=== PATIENT | male | born 1985 | race Caucasian/White ===

== ENCOUNTER 2017-02-21 09:24 | Emergency (ER) | payer BC, MEDICAID ==
[2017-02-21] MEDS ORDERED: Lidocaine 1% MPF* 2 ML VIAL INJ ONE (11:50)
[2017-02-21] MEDS ORDERED: Lidocaine 2% PF * 5 ML VIAL ONE (11:54)
[2017-02-21 12:22] VITALS: BP 129/87
--- NOTE | 2017-02-21 13:00 | UC ---
Lower Extremity/Ankle HPI - HPI Summary HPI Summary: TRIP AND FALL YESTERDAY, TWISTED LEFT FOOT. PAIN IN 5TH AND 4TH TOES AND TOP OF FOOT. - History of Current Complaint Chief Complaint: UCLowerExtremity Stated Complaint: LEFT FOOT INJURY FROM FALL Time Seen by Provider: 02/21/17 10:14 Hx Obtained From: Patient Onset/Duration: Sudden Onset, Lasting Hours Severity Initially: Mild Severity Currently: Mild Pain Intensity: 2 Pain Scale Used: 0-10 Numeric Aggravating Factor(s): Standing, Ambulation Alleviating Factor(s): Rest - Risk Factors Gout Risk Factors: Negative DVT Risk Factors: Negative Septic Arthritis Risk Factor: Negative - Allergies/Home Medications Allergies/Adverse Reactions: Allergies Allergy/AdvReac Type Severity Reaction Status Date / Time Codeine Allergy Itching Verified 02/21/17 10:32 Home Medications: Home Medications NK [No Home Medications Reported] 02/21/17 [History Confirmed 02/21/17] PMH/Surg Hx/FS Hx/Imm Hx Previously Healthy: Yes - Surgical History Surgical History: None - Family History Known Family History: Negative: Other - NO JOINT LAXITY - Social History Occupation: Employed Full-time Lives: With Family Alcohol Use: Rare Substance Use Type: None Smoking Status (MU): Never Smoked Tobacco Review of Systems Constitutional: Negative Skin: Bruising - LEFT 5TH PROXIMAL TOE Eyes: Negative ENT: Negative Respiratory: Negative Cardiovascular: Negative Gastrointestinal: Negative Genitourinary: Negative Motor: Negative Neurovascular: Negative Musculoskeletal: Arthralgia - LEFT 4TH AND 5TH PROXIMAL TOE PAIN, Myalgia Neurological: Negative Psychological: Negative Is Patient Immunocompromised?: No All Other Systems Reviewed And Are Negative: Yes Physical Exam Triage Information Reviewed: Yes Appearance: Well-Appearing, No Pain Distress, Well-Nourished Vital Signs: Initial Vital Signs Temp 98.6 F 02/21/17 10:27 Pulse 88 02/21/17 10:27 Resp 18 02/21/17 10:27 BP 138/84 02/21/17 10:27 Pulse Ox 97 02/21/17 10:27 Vital Signs Reviewed: Yes Eye Exam: Normal ENT Exam: Normal Dental Exam: Normal Neck exam: Normal Respiratory Exam: Normal Respiratory: Positive: Chest non-tender, Lungs clear, Normal breath sounds, No respiratory distress, No accessory muscle use Cardiovascular Exam: Normal Cardiovascular: Positive: RRR, No Murmur, Pulses Normal, Brisk Capillary Refill Abdominal Exam: Normal Musculoskeletal: Positive: Strength Intact, ROM Limited @ - LEFT 5TH TOE, Edema @ - LEFT 5TH DISTAL FOOT Neurological Exam: Normal Psychological Exam: Normal Skin Exam: Normal Procedures - Procedure Summary Procedure Summary: REDUCTION OF ANGULATION OF LEFT FIFTH PROXIMAL PHALANX USING 2% LIDO (PLAIN) FOR DIGITAL BLOCK. Lower Extremity Course/Dx - Differential Dx/Diagnosis Differential Diagnosis/HQI/PQRI: Fracture (Closed), Sprain, Strain Provider Diagnoses: CLOSED FRACTURE OF LEFT FIFTH PROXIMAL PHALANX Discharge - Discharge Plan Condition: Stable Disposition: HOME Patient Education Materials: Toe Fracture (ED) Referrals: Philip Martinez MD [Medical Doctor] - Yaw Mahoney MD [Primary Care Provider] -
--- NOTE | 2017-02-21 19:50 | RAD ---
INDICATION: Left fourth and fifth toe injury COMPARISON: None TECHNIQUE: AP, lateral, and oblique views were obtained. FINDINGS: There is a transverse, mildly angulated fracture of the proximal aspect of the proximal phalanx of the fifth toe there are no other fractures. There is soft tissue swelling about the fracture site.. IMPRESSION: ANGULATED TRANSVERSE FRACTURE PROXIMAL PHALANX OF FIFTH TOE.
--- NOTE | 2017-02-21 19:51 | RAD ---
INDICATION: The fifth toe post reduction COMPARISON: Left foot same date TECHNIQUE: AP, lateral, and oblique views were obtained. FINDINGS: The angular deformity of the fracture proximal phalanx of the fifth toe is significantly improved. There is minor distraction and minor displacement. No other fractures are evident. There is soft tissue swelling. IMPRESSION: ] CLOSED REDUCTION OF FIFTH TOE FRACTURE WITH IMPROVED POSITION AND ALIGNMENT.
== END 2017-02-21 12:42 | disposition home or self-care (01) ==
LOC: UCCORT 09:24
DX: S92.512A Displaced fracture of proximal phalanx of left lesser toe(s), initial encounter for closed fracture (principal); W01.0XXA Fall on same level from slipping, tripping and stumbling without subsequent striking against object, initial encounter; Y93.9 Activity, unspecified; Y92.9 Unspecified place or not applicable; Z88.5 Allergy status to narcotic agent
CPT/HCPCS: 28515; 99213; G0463

== ENCOUNTER 2021-03-30 12:54 | Inpatient (IN) ==
[2021-03-30 14:51] LABS: ABS Lymphocytes 1.2 10^3/ul (1.0-4.8); ABS Monocytes 0.5 10^3/ul (0-0.8); ABS Neutrophils 3.5 10^3/ul (1.5-7.7); Hematocrit 47 % (42-52); Hemoglobin 16.4 g/dL (14.0-18.0); Lymphocyte % 23.1 %; Mean Corpuscular HGB Conc 35 g/dL (31-36); Mean Corpuscular Hemoglobin 30 pg (27-31); Mean Corpuscular Volume 85 fL (80-94); Mean Platelet Volume 7.4 fL (7.4-10.4); Nucleated Red Blood Cells % 0.2; Platelet Count 126 10^3/uL (150-450); Red Blood Count 5.56 10^6 /uL (4.18-5.48); Red Cell Distribution Width 13 % (10-15); White Blood Count 5.3 10^3/uL (3.5-10.8)
[2021-03-30 15:01] LABS: Activated Partial Thrombo Time 32.9 seconds (26.0-38.0); INR 1.29 (0.86-1.15)
[2021-03-30 15:04] LABS: Albumin 3.6 g/dL (3.2-5.2); Calcium 8.5 mg/dL (8.6-10.3); Total Bilirubin 0.8 mg/dL (0.2-1.0)
[2021-03-30 15:10] LABS: Albumin/Globulin Ratio 1.1 (1-3); C Reactive Protein 67.46 mg/L (<8.01); Globulin 3.4 g/dL (2-4); eGFR CKD-EPI 116.5 (>60)
[2021-03-30 15:34] LABS: Ferritin 948.3 ng/mL (24-336)
[2021-03-30] MEDS ORDERED: Iodixanol (CONTRAST) 320 MG/ML 100 ML SDV IV ONE (15:55)
[2021-03-30] MEDS ORDERED: Dexamethasone IV 4 MG/ML VIAL 1 ml VIAL IV SLOW PU ONE (16:41)
[2021-03-30] MEDS ORDERED: Ondansetron 4 mg VIAL 2 MG/ML 2 ml VIAL IV PRN (17:48)
[2021-03-30] MEDS ORDERED: Dextrose 50% Syringe 50 ml 25 GM/50 ML SYRINGE IV PUSH PRN ×2 (17:50→22:57)
[2021-03-30] MEDS ORDERED: Remdesivir 100 mg Vial 200 MG in NS 0.9% 250 ml 210 ML IV ONE (18:30)
[2021-03-30] MEDS: Azithromycin 500 mg/250 ml NS 500 MG/250 ML BAG IVPB SCH (18:37)
[2021-03-30] MEDS: cefTRIAXone 1 gm/50 mL NS BAG 1 GM/50 ML BAG IVPB SCH (18:37)
[2021-03-30 20:30] LABS: INR 1.21 (0.86-1.15)
[2021-03-30 20:46] LABS: Albumin 3.6 g/dL (3.2-5.2); Albumin/Globulin Ratio 1.1 (1-3); Calcium 8.3 mg/dL (8.6-10.3); Globulin 3.4 g/dL (2-4); Total Bilirubin 0.7 mg/dL (0.2-1.0); eGFR CKD-EPI 116.5 (>60)
[2021-03-30 20:50] LABS: Potassium 4.7 mmol/L (3.5-5.0)
[2021-03-30] MEDS: Enoxaparin 40 MG/0.4 ML SYR SUBCUT SCH (22:15)
[2021-03-31 05:09] LABS: PCO2 Arterial 36 mmHg (35-45); PO2 Arterial 75 mmHg (80-100)
[2021-03-31 06:31] LABS: ABS Lymphocytes 0.9 10^3/ul (1.0-4.8); ABS Monocytes 0.3 10^3/ul (0-0.8); ABS Neutrophils 1.2 10^3/ul (1.5-7.7); Hematocrit 44 % (42-52); Hemoglobin 15.2 g/dL (14.0-18.0); Lymphocyte % 39.5 %; Mean Corpuscular HGB Conc 35 g/dL (31-36); Mean Corpuscular Hemoglobin 30 pg (27-31); Mean Corpuscular Volume 86 fL (80-94); Mean Platelet Volume 7.8 fL (7.4-10.4); Nucleated Red Blood Cells % 0.2; Platelet Count 143 10^3/uL (150-450); Red Cell Distribution Width 13 % (10-15); White Blood Count 2.4 10^3/uL (3.5-10.8)
[2021-03-31 06:39] LABS: INR 1.18 (0.86-1.15)
[2021-03-31 06:53] LABS: Albumin 3.5 g/dL (3.2-5.2); Albumin/Globulin Ratio 1.1 (1-3); C Reactive Protein 74.96 mg/L (<8.01); Calcium 8.5 mg/dL (8.6-10.3); Globulin 3.2 g/dL (2-4); Potassium 4.3 mmol/L (3.5-5.0); Total Bilirubin 0.6 mg/dL (0.2-1.0); Total Protein 6.7 g/dL (6.4-8.9); eGFR CKD-EPI 113.2 (>60)
[2021-03-31] MEDS: methylPREDNISolone SOD 40 mg/ml 1 ml VIAL IV SCH ×2 (10:52→17:26)
[2021-03-31] MEDS: Azithromycin 500 mg/250 ml NS 500 MG/250 ML BAG IVPB SCH (11:21)
[2021-03-31] MEDS: cefTRIAXone 1 gm/50 mL NS BAG 1 GM/50 ML BAG IVPB SCH (17:26)
[2021-03-31] MEDS ORDERED: Furosemide 40 mg/4 ml IV VIAL IV SLOW PU ONE (18:38)
[2021-03-31] MEDS: Enoxaparin 40 MG/0.4 ML SYR SUBCUT SCH (20:36)
[2021-03-31] MEDS: Remdesivir 100 mg Vial 100 MG in NS 0.9% 250 ml 230 ML IV SCH (20:46)
[2021-03-31] MEDS ORDERED: Insulin GLARGINE 100 un/ml 10 ml VIAL ONE (21:21)
[2021-03-31] MEDS ORDERED: Insulin GLARGINE 100 un/ml 10 ml VIAL SUBCUT SCH (21:30)
[2021-04-01] MEDS: methylPREDNISolone SOD 40 mg/ml 1 ml VIAL IV SCH ×3 (03:01→17:34)
[2021-04-01 05:30] LABS: ABS Lymphocytes 1.1 10^3/ul (1.0-4.8); ABS Monocytes 0.5 10^3/ul (0-0.8); ABS Neutrophils 3.3 10^3/ul (1.5-7.7); Hematocrit 44 % (42-52); Hemoglobin 15.1 g/dL (14.0-18.0); Mean Corpuscular HGB Conc 35 g/dL (31-36); Mean Corpuscular Hemoglobin 30 pg (27-31); Mean Corpuscular Volume 86 fL (80-94); Mean Platelet Volume 7.9 fL (7.4-10.4); Platelet Count 170 10^3/uL (150-450); Red Blood Count 5.06 10^6 /uL (4.18-5.48); Red Cell Distribution Width 13 % (10-15); White Blood Count 4.8 10^3/uL (3.5-10.8)
[2021-04-01 05:45] LABS: INR 1.18 (0.86-1.15)
[2021-04-01 06:03] LABS: Albumin 3.6 g/dL (3.2-5.2); Albumin/Globulin Ratio 1.1 (1-3); Calcium 8.8 mg/dL (8.6-10.3); Globulin 3.2 g/dL (2-4); Potassium 4.5 mmol/L (3.5-5.0); Total Bilirubin 0.5 mg/dL (0.2-1.0); Total Protein 6.8 g/dL (6.4-8.9); eGFR CKD-EPI 91.7 (>60)
[2021-04-01 13:04] LABS: Glucose Confirmatory 408 mg/dL (70-100)
[2021-04-01] MEDS ORDERED: Insulin GLARGINE 100 un/ml 10 ml VIAL SUBCUT ONE (13:08)
[2021-04-01] MEDS: cefTRIAXone 1 gm/50 mL NS BAG 1 GM/50 ML BAG IVPB SCH (17:33)
[2021-04-01] MEDS ORDERED: Insulin GLARGINE 100 un/ml 10 ml VIAL SUBCUT SCH ×2 (21:00)
[2021-04-01] MEDS: Enoxaparin 40 MG/0.4 ML SYR SUBCUT SCH (21:09)
[2021-04-01 21:54] LABS: Glucose Confirmatory 411 mg/dL (70-100)
[2021-04-01] MEDS: Remdesivir 100 mg Vial 100 MG in NS 0.9% 250 ml 230 ML IV SCH (22:19)
[2021-04-02] MEDS: methylPREDNISolone SOD 40 mg/ml 1 ml VIAL IV SCH ×3 (02:13→17:19)
[2021-04-02 04:51] LABS: INR 1.19 (0.86-1.15)
[2021-04-02 05:01] LABS: Albumin 3.4 g/dL (3.2-5.2); Albumin/Globulin Ratio 1.1 (1-3); Calcium 8.6 mg/dL (8.6-10.3); Potassium 4.6 mmol/L (3.5-5.0); Total Bilirubin 0.5 mg/dL (0.2-1.0); Total Protein 6.4 g/dL (6.4-8.9); eGFR CKD-EPI 115.6 (>60)
[2021-04-02 06:58] LABS: ABS Lymphocytes 0.7 10^3/ul (1.0-4.8); ABS Monocytes 0.5 10^3/ul (0-0.8); ABS Neutrophils 4.8 10^3/ul (1.5-7.7); Hematocrit 42 % (42-52); Hemoglobin 14.5 g/dL (14.0-18.0); Lymphocyte % 11.6 %; Mean Corpuscular HGB Conc 35 g/dL (31-36); Mean Corpuscular Hemoglobin 30 pg (27-31); Mean Corpuscular Volume 86 fL (80-94); Mean Platelet Volume 7.9 fL (7.4-10.4); Platelet Count 192 10^3/uL (150-450); Red Cell Distribution Width 13 % (10-15); White Blood Count 6.1 10^3/uL (3.5-10.8)
[2021-04-02 14:58] LABS: Glucose Confirmatory 457 mg/dL (70-100)
[2021-04-02] MEDS: cefTRIAXone 1 gm/50 mL NS BAG 1 GM/50 ML BAG IVPB SCH (17:19)
[2021-04-02 18:34] LABS: Glucose Confirmatory 423 mg/dL (70-100)
[2021-04-02] MEDS: Remdesivir 100 mg Vial 100 MG in NS 0.9% 250 ml 230 ML IV SCH (20:45)
[2021-04-02] MEDS: Enoxaparin 40 MG/0.4 ML SYR SUBCUT SCH (20:46)
[2021-04-02] MEDS ORDERED: Insulin GLARGINE 100 un/ml 10 ml VIAL SUBCUT SCH (21:00)
[2021-04-02 21:39] LABS: Glucose Confirmatory 433 mg/dL (70-100)
[2021-04-02] MEDS ORDERED: Insulin Infusion 100unit/100mL 100 UNIT/100 ML BAG IV ONE (21:55)
[2021-04-02] MEDS ORDERED: Dextrose 50% Syringe 50 ml 25 GM/50 ML SYRINGE IV PUSH PRN ×2 (22:26→22:29)
[2021-04-03] MEDS ORDERED: methylPREDNISolone 125 mg 2 ML VIAL ONE (01:22)
[2021-04-03] MEDS: methylPREDNISolone 125 mg 2 ML VIAL IV SCH ×2 (01:34→08:18)
[2021-04-03 07:02] LABS: ABS Lymphocytes 0.5 10^3/ul (1.0-4.8); ABS Monocytes 0.4 10^3/ul (0-0.8); ABS Neutrophils 4.7 10^3/ul (1.5-7.7); Hematocrit 41 % (42-52); Hemoglobin 14.3 g/dL (14.0-18.0); Lymphocyte % 9.3 %; Mean Corpuscular HGB Conc 35 g/dL (31-36); Mean Corpuscular Hemoglobin 30 pg (27-31); Mean Corpuscular Volume 86 fL (80-94); Mean Platelet Volume 8.1 fL (7.4-10.4); Platelet Count 204 10^3/uL (150-450); Red Blood Count 4.81 10^6 /uL (4.18-5.48); Red Cell Distribution Width 13 % (10-15); White Blood Count 5.7 10^3/uL (3.5-10.8)
[2021-04-03 08:18] LABS: Albumin 3.4 g/dL (3.2-5.2); Albumin/Globulin Ratio 1.2 (1-3); Calcium 8.5 mg/dL (8.6-10.3); Globulin 2.8 g/dL (2-4); Potassium 4.4 mmol/L (3.5-5.0); Total Bilirubin 0.7 mg/dL (0.2-1.0); Total Protein 6.2 g/dL (6.4-8.9); eGFR CKD-EPI 118.7 (>60)
[2021-04-03 12:46] LABS: Glucose Confirmatory 404 mg/dL (70-100)
[2021-04-03] MEDS: cefTRIAXone 1 gm/50 mL NS BAG 1 GM/50 ML BAG IVPB SCH (17:37)
[2021-04-03] MEDS: Enoxaparin 40 MG/0.4 ML SYR SUBCUT SCH (20:32)
[2021-04-03] MEDS ORDERED: methylPREDNISolone 125 mg 2 ML VIAL IV SCH (21:00)
[2021-04-03] MEDS ORDERED: Insulin GLARGINE 100 un/ml 10 ml VIAL SUBCUT SCH ×2 (21:00)
[2021-04-03] MEDS: Remdesivir 100 mg Vial 100 MG in NS 0.9% 250 ml 230 ML IV SCH (22:37)
[2021-04-04 06:26] LABS: ABS Lymphocytes 1.3 10^3/ul (1.0-4.8); ABS Monocytes 0.8 10^3/ul (0-0.8); ABS Neutrophils 5.3 10^3/ul (1.5-7.7); Eosinophil % 0.1 %; Hematocrit 42 % (42-52); Hemoglobin 14.5 g/dL (14.0-18.0); Lymphocyte % 17.9 %; Mean Corpuscular HGB Conc 35 g/dL (31-36); Mean Corpuscular Hemoglobin 30 pg (27-31); Mean Corpuscular Volume 86 fL (80-94); Platelet Count 218 10^3/uL (150-450); Red Blood Count 4.87 10^6 /uL (4.18-5.48); Red Cell Distribution Width 13 % (10-15); White Blood Count 7.4 10^3/uL (3.5-10.8)
[2021-04-04 06:30] LABS: INR 1.18 (0.86-1.15)
[2021-04-04 06:45] LABS: Albumin 3.3 g/dL (3.2-5.2); Albumin/Globulin Ratio 1.2 (1-3); Calcium 8.4 mg/dL (8.6-10.3); Globulin 2.7 g/dL (2-4); Potassium 4.1 mmol/L (3.5-5.0); Total Bilirubin 0.7 mg/dL (0.2-1.0); eGFR CKD-EPI 114.8 (>60)
[2021-04-04] MEDS: methylPREDNISolone 125 mg 2 ML VIAL IV SCH (08:47)
[2021-04-04] MEDS ORDERED: Senna TAB 8.6 mg TAB PO PRN (14:15)
[2021-04-04] MEDS: cefTRIAXone 1 gm/50 mL NS BAG 1 GM/50 ML BAG IVPB SCH (17:42)
[2021-04-04] MEDS ORDERED: Dextrose 50% Syringe 50 ml 25 GM/50 ML SYRINGE IV PUSH PRN (18:07)
[2021-04-04] MEDS: Insulin GLARGINE 100 un/ml 10 ml VIAL SUBCUT SCH (20:54)
[2021-04-04] MEDS: Enoxaparin 40 MG/0.4 ML SYR SUBCUT SCH (20:54)
[2021-04-05 06:08] LABS: ABS Lymphocytes 1.4 10^3/ul (1.0-4.8); ABS Monocytes 0.8 10^3/ul (0-0.8); ABS Neutrophils 5.1 10^3/ul (1.5-7.7); Eosinophil % 0.5 %; Hematocrit 43 % (42-52); Hemoglobin 15.1 g/dL (14.0-18.0); Lymphocyte % 18.5 %; Mean Corpuscular HGB Conc 35 g/dL (31-36); Mean Corpuscular Hemoglobin 30 pg (27-31); Mean Corpuscular Volume 86 fL (80-94); Mean Platelet Volume 7.8 fL (7.4-10.4); Platelet Count 243 10^3/uL (150-450); Red Blood Count 5.02 10^6 /uL (4.18-5.48); Red Cell Distribution Width 13 % (10-15); White Blood Count 7.3 10^3/uL (3.5-10.8)
[2021-04-05 06:20] LABS: Calcium 8.5 mg/dL (8.6-10.3); Magnesium 2.2 mg/dL (1.9-2.7); Potassium 4.2 mmol/L (3.5-5.0); eGFR CKD-EPI 117.8 (>60)
[2021-04-05 08:42] LABS: Albumin 3.4 g/dL (3.2-5.2); Albumin/Globulin Ratio 1.3 (1-3); Globulin 2.7 g/dL (2-4); Total Bilirubin 0.9 mg/dL (0.2-1.0); Total Protein 6.1 g/dL (6.4-8.9)
[2021-04-05] MEDS: methylPREDNISolone 125 mg 2 ML VIAL IV SCH (09:09)
[2021-04-05] MEDS: cefTRIAXone 1 gm/50 mL NS BAG 1 GM/50 ML BAG IVPB SCH (17:34)
[2021-04-05] MEDS: Insulin GLARGINE 100 un/ml 10 ml VIAL SUBCUT SCH (20:09)
[2021-04-05] MEDS: Enoxaparin 40 MG/0.4 ML SYR SUBCUT SCH (20:12)
[2021-04-06 06:27] LABS: ABS Eosinophils 0.1 10^3/ul (0-0.6); ABS Lymphocytes 1.8 10^3/ul (1.0-4.8); ABS Neutrophils 5.6 10^3/ul (1.5-7.7); Eosinophil % 1.2 %; Hematocrit 45 % (42-52); Hemoglobin 15.2 g/dL (14.0-18.0); Lymphocyte % 20.9 %; Mean Corpuscular HGB Conc 34 g/dL (31-36); Mean Corpuscular Hemoglobin 30 pg (27-31); Mean Corpuscular Volume 87 fL (80-94); Mean Platelet Volume 7.9 fL (7.4-10.4); Nucleated Red Blood Cells % 0.1; Platelet Count 273 10^3/uL (150-450); Red Blood Count 5.14 10^6 /uL (4.18-5.48); Red Cell Distribution Width 13 % (10-15); White Blood Count 8.5 10^3/uL (3.5-10.8)
[2021-04-06 06:49] VITALS: BP 111/78
[2021-04-06 06:54] LABS: Albumin 3.2 g/dL (3.2-5.2); Albumin/Globulin Ratio 1.1 (1-3); Calcium 8.7 mg/dL (8.6-10.3); Globulin 2.8 g/dL (2-4); Magnesium 2.2 mg/dL (1.9-2.7); Potassium 4.5 mmol/L (3.5-5.0); Total Bilirubin 0.8 mg/dL (0.2-1.0); eGFR CKD-EPI 116.9 (>60)
[2021-04-06] MEDS: methylPREDNISolone 125 mg 2 ML VIAL IV SCH (08:54)
== END 2021-04-06 13:30 | disposition home or self-care (01) | DRG 137 ==
LOC: ED 12:54 → EDHOLD 18:48 → SUATTDRO 18:48 → MED 20:46 → ICU 03-31 06:08 → MED 04-03 22:15
PROVIDERS: ADMIT Hospitalist; ATTEND Internal Medicine